=== PATIENT | female | born 1965 | race Caucasian/White ===

== ENCOUNTER 2017-03-19 07:16 | Day surgery (SDC) | payer OTHER ==
[~2017-03-19] VITALS: Ht 157.5 cm; Wt 100.6 kg
[2017-03-19] MEDS ORDERED: LUPUS MED PO (10:16)
[2017-03-19] MEDS ORDERED: ASPI-664 PO (10:16)
[2017-03-19 10:23] VITALS: Ht 157.5 cm; Wt 100.6 kg
[2017-03-19 11:15] VITALS: BP 117/73; PULSE 70; RESP 20
[2017-03-19] MEDS ORDERED: LIDOCAINE 2% (SDV) 5 ML INJ ONE (11:20)
[2017-03-19] MEDS ORDERED: FENTAnyl 50 MCG/ML VIAL ONE (11:20)
[2017-03-19] MEDS ORDERED: MIDAZOLAM 1 MG/ML 2 ML INJ ONE (11:20)
[2017-03-19] MEDS ORDERED: PROPOFOL 20 ML ONE (11:20)
--- NOTE | 2017-03-19 11:53 | OPPN ---
Date/Time of Note Date/Time of Note DATE: 03/19/17 TIME: 11:52 Operative Report Preoperative Diagnosis Screening Postoperative Diagnosis Diverticulosis of the colon Internal hemorrhoids No colon neoplasm is identified Operation/Procedure Performed Colonoscopy Surgeon see signature line pastrycook's assistant None Anesthesia: MAC Estimated blood loss: none Transfusion Required none Specimen None Grafts/Implants none Complications none DEISY CORBIN MD Mar 19, 2017 11:53
[2017-03-19 12:15] VITALS: BP 109/64; PULSE 73; RESP 20
--- NOTE | 2017-03-20 02:48 | GILP ---
DATE OF PROCEDURE: NAME OF PROCEDURE: Colonoscopy. SURGEON: Deisy Son MD PREOPERATIVE DIAGNOSIS: Screening colonoscopy. POSTOPERATIVE DIAGNOSES: 1. Colonoscopy all the way to the cecum. 2. Diverticulosis of the colon. 3. Internal hemorrhoids. 4. No colon neoplasm was identified. INDICATION FOR THE PROCEDURE: Ms. Lisa Santana is a 51-year-old female patient who was noted to lorenzana ve positive occult blood in stool. She was scheduled for screening colonoscopy. The procedure and possible complications are well explained to the patient, she understood and conse nted to the procedure. DESCRIPTION OF PROCEDURE: Under the influence of anesthesia, the colonoscope was carefully introduc ed in the rectum and under direct vision, it was advanced all the way to the cecum. FINDINGS: The patient had diverticulosis of the colon. She also had internal hemorrhoids. No colo n neoplasm was identified. She tolerated the procedure very well and there was no complication from the procedure. At the end of the procedure, she was awake with stable vital signs and she was discharged home to the care of h er family. IMPRESSION: Please see postoperative diagnoses. PLAN: 1. High fiber diet. 2. Next screening colonoscopy in 10 years. Dictated By: DEISY IRBY/LISA Conf#: [id number] DID#: [id number]
== END 2017-03-19 13:05 | disposition home or self-care (01) ==
LOC: GIL 07:16
PROVIDERS: ATTEND Internal Medicine Gastroenterology
DX: Z12.11 Encounter for screening for malignant neoplasm of colon (principal); K57.90 Diverticulosis of intestine, part unspecified, without perforation or abscess without bleeding; K64.8 Other hemorrhoids; E66.9 Obesity, unspecified; Z68.41 Body mass index [BMI] 40.0-44.9, adult; M32.9 Systemic lupus erythematosus, unspecified
CPT/HCPCS: 45378; J2250; J3010